=== PATIENT | female | born 1945 | race Caucasian/White ===

== ENCOUNTER 2024-01-21 21:09 | Inpatient (IN) ==
--- NOTE | 2024-01-21 21:29 | Emergency Department Note ---
Impression & Plan Small bowel obstruction, Abdominal pain ED Provider Note NAME: BISHNU GAXIOLA AGE: 78 SEX: F : 1945 ARRIVES VIA: Walk-In INFORMANT: Patient, ED PROVIDER(S): Denice Mccabe MD CHIEF COMPLAINT: Abdominal pain HPI: This is a an 78-year-old female with history of bowel resection, small bowel obstructions presenting for abdominal pain. Patient notes that she had 1 day history of bowel pain. Initially lower abdomen and then today became more upper abdomen. She an episode of vomiting which actually improved her symptoms but she still has achy pain in her abdomen. This does feel somewhat similar to previous SBO she has had. She was scared she may have mesenteric ischemia again so she also came in for this. No current fever, chills, nausea or vomiting. ROS: See above HPI for pertinent positives & negatives. A total of 10 systems reviewed and were otherwise negative. PAST MEDICAL HISTORY: See Below PAST SURGICAL HISTORY: See Below FAMILY HISTORY: See Below SOCIAL HISTORY: See Below HOME MEDICATIONS: See Below ALLERGIES: See Below VITALS: See Below PHYSICAL EXAMINATION: General: resting comfortably in no acute distress Head: Normocephalic and atraumatic Eyes: Normal inspection, extraocular muscles intact Ear, nose, throat: Normal external exam Neck: Normal range of motion Respiratory: lungs clear to auscultation bilaterally Cardiovascular: Regular rate/rhythm, no murmur GI: soft, nontender, no guarding or rebound Extremities: nontender, moves all extremities Neuro: The patient awake and alert, appropriately conversive, no focal deficits, symmetric faces Skin: Warm, dry, and intact MEDICAL DECISION MAKING: This is an 78-year-old female with history of bowel resection, small bowel obstruction, infected skin presenting for abdominal pain. Patient has reassuring vitals, nontender abdomen, no pain at proportion to exam. Does not appear septic on arrival. Will do CT imaging as well as blood work. And urinalysis. -Blood work reveals no leukocytosis, slight anemia. Otherwise electrodes within normal limits. Creatinine 1.24. No transaminitis. Urinalysis reveals no signs UTI -CT ab/pelvis does reveal signs of a small bowel obstruction versus enteritis. Discussed with Dr. Ledezma, general surgery, who states patient is amenable to be admitted here. -Discussed with Dr. Patel, for admission, hospitalist service. Differential diagnosis: SBO, diverticulitis, mesenteric ischemia, cholecystitis, bowel perforation, volvulus ER treatment provided: See below Independent History obtained from: [facility] interpreted by me: ECG: None Cardiac Monitoring: An order was placed for continuous cardiac monitoring. The monitor shows a rate of 74 with sinus rhythm. Laboratory studies: As stated above and show below. Imaging studies: See below. Past Med/Surg History Problem List (Updated 01/21/24 @ 23:43 by Denice Mccabe MD) Abdominal pain (Acute) Small bowel obstruction (Acute) Social History Smoking Status: Former smoker Preferred Language: Malagasy Feels Safe at Home: Yes Allergies Allergies Allergy/AdvReac Type Severity Reaction Status Date / Time cephalexin Allergy Rash Unverified 01/21/24 22:43 Home Meds Home Medications Medication Instructions Recorded Confirmed aspirin 81 mg tablet,delayed 162 mg PO QPM 01/21/24 01/21/24 release bimatoprost 0.01 % eye drops 1 drp ophthalmic (eye) QPM 01/21/24 01/21/24 (Lumigan) cholecalciferol (vitamin D3) 125 125 mcg PO QAM 01/21/24 01/21/24 mcg (5,000 unit) tablet (Vitamin D3) ezetimibe 10 mg tablet 10 mg PO QAM 01/21/24 01/21/24 famotidine 20 mg tablet 20 mg PO QPM 01/21/24 01/21/24 furosemide 40 mg tablet 40 mg PO QAM 01/21/24 01/21/24 lactobacillus comb no.10 20 20,000 mmu cells PO DAILY 01/21/24 01/21/24 billion cell capsule (Probiotic) levothyroxine 50 mcg tablet 50 mcg PO QAM 01/21/24 01/21/24 multivitamin 1 tab PO QAM 01/21/24 01/21/24 pantoprazole 40 mg tablet,delayed 40 mg PO BID 01/21/24 01/21/24 release spironolactone 25 mg tablet 25 mg PO QAM 01/21/24 01/21/24 valsartan 160 mg tablet 160 mg PO QAM 01/21/24 01/21/24 Results & Data (ED) Vital Signs Vital Signs - 24 hr 01/21/24 21:10 01/21/24 22:43 Temperature 36.7 C Temperature Source Temporal Artery Scan Pulse Rate 79 Pulse Rate [Apical] 74 Pulse Strength [Apical] Normal Respiratory Rate 16 18 Respiratory Effort / Characteristics Non-Labored Spontaneous Non-Labored Spontaneous Respiratory Depth Normal Normal Respiratory Pattern Regular Blood Pressure 170/89 H Blood Pressure [Right Arm] 128/70 Blood Pressure Mean 116 Blood Pressure Mean [Right Arm] 89 Pulse Oximetry 94 96 Oxygen Delivery Method Room Air Room Air Sepsis New/Unexplained Change in Mental Status No Sepsis Action Taken by Nursing No Action Required Laboratory Data 01/21/24 21:30 01/21/24 21:30 Lab Results 01/21/24 01/21/24 01/21/24 Range/Units 21:30 21:37 22:48 WBC 10.59 (4.8-10.8) K/ul RBC 4.23 (4.20-5.40) M/uL Hgb 11.3 L (12.0-16.0) g/dl POC Hgb 12.9 (12.0-16.0) g/dl Hct 35.3 L (37.0-47.0) % POC Hct 38 (37-47) % MCV 83.5 (80.0-100.0) fL MCH 26.7 (25.0-34.0) pg MCHC 32.0 (32.0-36.0) g/dL RDW Std Deviation 50.2 H (36.4-46.3) fL RDW Coeff of Kush 16.5 H (11.5-14.5) % Plt Count 292 (130-400) K/uL MPV 10.3 (9.4-12.4) fL Immature Gran % (Auto) 0.2 % Neut % (Auto) 82.1 % Lymph % (Auto) 7.6 % [place] % (Auto) 7.1 % Eos % (Auto) 2.8 % Baso % (Auto) 0.2 % Neut # (Auto) 8.70 H (1.40-6.50) K/uL Lymph # (Auto) 0.80 L (1.20-3.40) K/uL [place] # (Auto) 0.75 H (0.11-0.59) K/uL Eos # (Auto) 0.30 (0.00-0.50) K/uL Baso # (Auto) 0.02 (0.00-0.20) K/uL Immature Gran # (Auto) 0.02 (0.01-0.20) K/uL POC Sodium 140 (135-144) mmol/L Sodium 140 (136-145) mmol/L POC Potassium 4.0 (3.3-5.0) mmol/L Potassium 4.1 (3.5-5.1) mmol/L POC Chloride 103 (101-112) mmol/L Chloride 102 (98-107) mmol/L Carbon Dioxide 29 (21-32) mmol/L POC Total CO2 28 (24-31) mmol/L Anion Gap 9 (3-11) POC Anion Gap 14.0 L (16-25) mmol/L POC BUN 50 H (7-18) mg/dl BUN 42 H (6-23) mg/dl Creatinine 1.24 H (0.6-1.2) mg/dl POC Creatinine 1.3 (0.6-1.3) mg/dl Est Cr Clr Drug Dosing 34.8 ml/min eGFR 43.99 BUN/Creatinine Ratio 33.9 H (10-20) Glucose 107 H (70-99(Fasting)) mg/dl POC Glucose (other) 105 H (70-99) mg/dl Calcium 10.1 (8.6-10.3) mg/dl POC Ioniz Calcium [place] 1.18 (1.12-1.32) mmol/l Total Bilirubin 0.4 (0.2-1.0) mg/dl Direct Bilirubin TNP 0.1 AST 31 (13-39) U/L ALT 16 (7-52) U/L Alkaline Phosphatase 58 (34-104) U/L Total Protein 8.3 (6.0-8.3) gm/dl Albumin 4.9 (3.4-5.0) gm/dl Lipase 21 (11-82) U/L Urine Color Yellow Urine Appearance Clear (Clear) Urine pH 5.5 (4.5-7.5) Ur Specific [place] 1.016 (1.000-1.030) Urine Protein Negative (Negative) Urine Glucose (UA) Negative (Negative) Urine Ketones Trace H (Negative) Urine Blood Negative (Negative) Urine Nitrite Negative (Negative) Urine Bilirubin Negative (Negative) Urine Urobilinogen Negative (Negative) Ur Leukocyte Esterase 1+ H (Negative) Urine WBC (Auto) 0-5 (0-5) /hpf Urine RBC (Auto) 0-2 (0-2) /hpf U Hyaline Cast (Auto) 0-2 (0-2) /lpf U Epithel Cells (Auto) 0-2 (0-2) /hpf Urine Bacteria (Auto) None Seen (None Seen) Administered Medications Discontinued Medications Acetaminophen (Ofirmev) 1,000 mg in 100 mls @ 400 mls/hr IV NOW STA Stop: 01/21/24 22:56 Last Infusion: 01/21/24 23:09 Dose: Infused Documented By: Admin: 01/21/24 22:46 Dose: 400 mls/hr Documented By: COURTNEY Ioversol (Optiray 320 100ml) 93 ml IV ONCE ONE Stop: 01/21/24 21:48 Last Admin: 01/21/24 21:48 Dose: 93 ml Documented By: ARTURO Ondansetron HCl (Ondansetron Inj 2 Mg/Ml 2 Ml Vial) 4 mg IV NOW STA Stop: 01/21/24 22:43 Last Admin: 01/21/24 22:46 Dose: 4 mg Documented By: COURTNEY Imaging Data Radiologist's Impression: Abdomen/Pelvis CT 01/21/24 21:14 Exam(s): CT ABDOMEN + PELVIS With Contrast IV Amt: 93 ml optiray 320 EXAM: CT Abdomen and Pelvis With Intravenous Contrast CLINICAL HISTORY: RUQ abd pain. TECHNIQUE: Axial computed tomography images of the abdomen and pelvis with intravenous contrast. CTDI is 26.18 mGy and DLP is 1101.57 mGy-cm. Automated exposure control was utilized for the study. A dose lowering technique was utilized adhering to the principles of ALARA. CONTRAST: Patient received 93 ml optiray 320 of IV contrast COMPARISON: No relevant prior studies available. FINDINGS: Limitations: There is respiratory artifact, which degrades image quality on multiple image slices. Lung bases: Unremarkable. No mass. No consolidation. ABDOMEN: Liver: Unremarkable. No mass. Gallbladder and bile ducts: Unremarkable. No calcified stones. No ductal dilation. Pancreas: Unremarkable. No mass. No ductal dilation. Spleen: Unremarkable. No splenomegaly. Adrenals: Unremarkable. No mass. Kidneys and ureters: Kidneys demonstrate normal enhancement. Cortical cysts are noted involving the superior pole the left kidney measuring 14 mm. Evaluation is somewhat limited by artifact from extensive hardware and respiratory degradation. No hydronephrosis or obstructive nephrolithiasis. Extensive postoperative changes noted from T11-S1 levels with bilateral pedicle screws and paraspinal rods. The left S1 posterior pedicle screw does not articulate with the inferior margin of the paraspinal rods. Stomach and bowel: There are abnormal fluid and gas dilated small bowel loops throughout the central abdomen and pelvis, measuring up to 3. 6 cm in diameter. There appears to be questionable subtle transition point proximal to the postoperative suture line in the central pelvis. At least moderate fluid and gas distention of the stomach. PELVIS: Appendix: No findings to suggest acute appendicitis. Bladder: Unremarkable. No mass. Reproductive: Status post hysterectomy. ABDOMEN and PELVIS: Intraperitoneal space: Unremarkable. No free air. No significant fluid collection. Bones/joints: Multilevel degenerative changes with interbody cages at several levels of the lumbar spine. No acute osseous abnormality. Laminectomy defects from L3-L5 levels. Grade 1-2 anterolisthesis of L4 on L5. No dislocation. Soft tissues: Unremarkable. Vasculature: Unremarkable. No abdominal aortic aneurysm. Lymph nodes: Unremarkable. No enlarged lymph nodes. IMPRESSION: There are abnormal fluid and gas dilated small bowel loops throughout the central abdomen and pelvis, measuring up to 3.6 cm in diameter. There appears to be questionable subtle transition point proximal to the postoperative suture line in the central pelvis. While this may represent enteritis, findings are highly suspicious for a mid small bowel obstruction. No pneumatosis or pneumoperitoneum. Electronically signed by: Alden Hinkle MD 01/21/24 22:57 PM Discharge Plan Visit Data Chief Complaint: Abdominal Pain Stated Complaint: ABD PAIN, VOMITING ED Provider: Denice Mccabe Discharge Problem: Small bowel obstruction, Abdominal pain Forms Stand Alone Forms: My [facility] [place] [address] Prescriptions Prescriptions: No Action multivitamin Tablet 1 tab PO QAM furosemide 40 mg tablet 40 mg PO QAM aspirin [Aspir-81] 81 mg Tablet,Delayed Release (Dr/Ec) 162 mg PO QPM spironolactone 25 mg tablet 25 mg PO QAM famotidine 20 mg tablet 20 mg PO QPM levothyroxine 50 mcg tablet 50 mcg PO QAM pantoprazole 40 mg tablet,delayed release (DR/EC) 40 mg PO BID valsartan 160 mg tablet 160 mg PO QAM ezetimibe 10 mg tablet 10 mg PO QAM cholecalciferol (vitamin D3) [Vitamin D3] 125 mcg (5,000 unit) Tablet 125 mcg PO QAM Lumigan 0.01 % drops 1 drp ophthalmic (eye) QPM Rx Instructions: both eyes Probiotic 20 billion cell Capsule 20,000 mmu cells PO DAILY Rx Instructions: administer with a meal Referrals Referrals: PCP,NO [Physician] -
[2024-01-21] MEDS: OPTIRAY 320 100ml IV ONE (21:48)
[2024-01-21 21:49] LABS: iSTAT Creatinine 1.3 mg/dl (0.6-1.3); iSTAT Hemoglobin 12.9 g/dl (12.0-16.0); iSTAT Ionized Calcium 1.18 mmol/l (1.12-1.32)
[2024-01-21 21:54] LABS: Appearance Urine Clear (Clear); Bacteria Urine Automated None Seen (None Seen); Bilirubin Urine Negative (Negative); Blood Urine Negative (Negative); Cast Urine Automated 0-2 /lpf (0-2); Color Urine Yellow; Epithelial Cell Urine Auto 0-2 /hpf (0-2); Glucose Urine UA Negative (Negative); Ketones Urine Trace (Negative); Leukocyte Esterase Urine 1+ (Negative); Nitrite Urine Negative (Negative); Protein Urine Negative (Negative); RBC Urine Automated 0-2 /hpf (0-2); Specific Gravity Urine 1.016 (1.000-1.030); Urobilinogen Urine Negative (Negative); WBC Urine Automated 0-5 /hpf (0-5); pH Urine 5.5 (4.5-7.5)
[2024-01-21 22:04] LABS: Basophils # (auto) 0.02 K/uL (0.00-0.20); Basophils % (auto) 0.2 %; Eosinophils % (auto) 2.8 %; Hematocrit (blood only) 35.3 % (37.0-47.0); Hemoglobin 11.3 g/dl (12.0-16.0); Immature Granulocytes # (auto) 0.02 K/uL (0.01-0.20); Immature Granulocytes % (auto) 0.2 %; Lymphocytes % (auto) 7.6 %; Mean Corpuscular Hemoglobin 26.7 pg (25.0-34.0); Mean Corpuscular Volume 83.5 fL (80.0-100.0); Mean Platelet Volume 10.3 fL (9.4-12.4); Monocytes # (auto) 0.75 K/uL (0.11-0.59); Monocytes % (auto) 7.1 %; Neutrophils % (auto) 82.1 %; Platelet Count 292 K/uL (130-400); RDW Coefficient of Variation 16.5 % (11.5-14.5); RDW Standard Deviation 50.2 fL (36.4-46.3); Red Blood Count 4.23 M/uL (4.20-5.40); White Blood Count 10.59 K/ul (4.8-10.8)
[2024-01-21 22:08] LABS: Alanine Aminotransferase 16 U/L (7-52); Albumin Level 4.9 gm/dl (3.4-5.0); Alkaline Phosphatase 58 U/L (34-104); Anion Gap 9 (3-11); Aspartate Aminotransferase 31 U/L (13-39); BUN Creatinine Ratio 33.9 (10-20); Bilirubin,Total 0.4 mg/dl (0.2-1.0); Blood Urea Nitrogen 42 mg/dl (6-23); Calcium 10.1 mg/dl (8.6-10.3); Carbon Dioxide 29 mmol/L (21-32); Chloride 102 mmol/L (98-107); Creatinine Clr Calc Pharmacy 34.8 ml/min; Glucose 107 mg/dl (70-99(Fasting)); Lipase 21 U/L (11-82); Potassium 4.1 mmol/L (3.5-5.1); Sodium 140 mmol/L (136-145); Total Protein 8.3 gm/dl (6.0-8.3)
[2024-01-21] MEDS: ONDANSETRON INJ 2 MG/ML 2 ML VIAL IV STA (22:46)
[2024-01-21] MEDS: ACETAMINOPHEN 1,000 MG/100 ML VIAL IV STA (22:46)
--- NOTE | 2024-01-21 22:58 | CT Scan Report ---
Exam(s): CT ABDOMEN + PELVIS With Contrast IV Amt: 93 ml optiray 320 EXAM: CT Abdomen and Pelvis With Intravenous Contrast CLINICAL HISTORY: RUQ abd pain. TECHNIQUE: Axial computed tomography images of the abdomen and pelvis with intravenous contrast. CTDI is 26.18 mGy and DLP is 1101.57 mGy-cm. Automated exposure control was utilized for the study. A dose lowering technique was utilized adhering to the principles of ALARA. CONTRAST: Patient received 93 ml optiray 320 of IV contrast COMPARISON: No relevant prior studies available. FINDINGS: Limitations: There is respiratory artifact, which degrades image quality on multiple image slices. Lung bases: Unremarkable. No mass. No consolidation. ABDOMEN: Liver: Unremarkable. No mass. Gallbladder and bile ducts: Unremarkable. No calcified stones. No ductal dilation. Pancreas: Unremarkable. No mass. No ductal dilation. Spleen: Unremarkable. No splenomegaly. Adrenals: Unremarkable. No mass. Kidneys and ureters: Kidneys demonstrate normal enhancement. Cortical cysts are noted involving the superior pole the left kidney measuring 14 mm. Evaluation is somewhat limited by artifact from extensive hardware and respiratory degradation. No hydronephrosis or obstructive nephrolithiasis. Extensive postoperative changes noted from T11-S1 levels with bilateral pedicle screws and paraspinal rods. The left S1 posterior pedicle screw does not articulate with the inferior margin of the paraspinal rods. Stomach and bowel: There are abnormal fluid and gas dilated small bowel loops throughout the central abdomen and pelvis, measuring up to 3. 6 cm in diameter. There appears to be questionable subtle transition point proximal to the postoperative suture line in the central pelvis. At least moderate fluid and gas distention of the stomach. PELVIS: Appendix: No findings to suggest acute appendicitis. Bladder: Unremarkable. No mass. Reproductive: Status post hysterectomy. ABDOMEN and PELVIS: Intraperitoneal space: Unremarkable. No free air. No significant fluid collection. Bones/joints: Multilevel degenerative changes with interbody cages at several levels of the lumbar spine. No acute osseous abnormality. Laminectomy defects from L3-L5 levels. Grade 1-2 anterolisthesis of L4 on L5. No dislocation. Soft tissues: Unremarkable. Vasculature: Unremarkable. No abdominal aortic aneurysm. Lymph nodes: Unremarkable. No enlarged lymph nodes. IMPRESSION: There are abnormal fluid and gas dilated small bowel loops throughout the central abdomen and pelvis, measuring up to 3.6 cm in diameter. There appears to be questionable subtle transition point proximal to the postoperative suture line in the central pelvis. While this may represent enteritis, findings are highly suspicious for a mid small bowel obstruction. No pneumatosis or pneumoperitoneum. Electronically signed by: Alden Hinkle MD 01/21/24 22:57 PM
--- NOTE | 2024-01-22 02:31 | History & Physical Report ---
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 Patient says since she is having abdominal pain initially in the lower abdomen. Wednesday she noticed the pain is coming into the upper abdomen and she was also very nauseous and vomited when she decided come to the ER. After vomiting her abdominal pain is slightly better. She moved her bowels Wednesday.. Patient is afebrile. Currently no headache. 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 No runny nose or sore throat or cough. No chest pain or shortness of breath. Resting comfortably. Hemodynamically stable. 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 Patient says she also might have sleep apnea because she gets headache when she wakes up and also during the hospitalization her oxygen sats were going down while sleeping and she is scheduled for sleep apnea test on February 23. small bowel obstruction History of recurrent bowel obstructions History of bowel resection for ischemic bowel N.p.o. IV fluids IV antiemetics as needed IV Tylenol and and Dilaudid as needed KUB in a.m. Surgery consult in a.m. for further recommendations JAMIE Creatinine 1.2 We do not have baseline labs If worsening will hold her diuretics and valsartan Follow labs History of hypertension On valsartan and diuretics History of hyperlipidemia Continue Zetia Glaucoma Continue eyedrops GERD On famotidine and Protonix Hypothyroidism On Synthyroid DVT prophylaxis Will place on [facility] Medical floor Full code. 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 Patient says since she is having abdominal pain initially in the lower abdomen. Flaco she noticed the pain is coming into the upper abdomen and she was also very nauseous and vomited when she decided come to the ER. After vomiting her abdominal pain is slightly better. She moved her bowels Wednesday.. Patient is afebrile. Currently no headache. 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 No runny nose or sore throat or cough. No chest pain or shortness of breath. Resting comfortably. Hemodynamically stable. 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 Patient says she also might have sleep apnea because she gets headache when she wakes up and also during the hospitalization her oxygen sats were going down while sleeping and she is scheduled for sleep apnea test on February 23. Past medical history. As mentioned above Past surgical history. Total hysterectomy. Appendectomy. Back surgeries. Right wrist surgery. Right total knee replacement. Right foot surgery. Bilateral cataracts. Stent in the eyes for glaucoma. Dental implant. Social history. Smoked from age [age] and then quit. Alcohol rarely. Family history. 1 brother from prostate cancer. Another brother had prostate cancer and dementia. Family history significant for hypertension. Mother had A-fib and sick sinus syndrome. Allergies Allergy/AdvReac Type Severity Reaction Status Date / Time cephalexin Allergy Rash Unverified 01/21/24 22:43 Home Medications Medication Instructions Recorded Confirmed Type aspirin 81 mg tablet,delayed 162 mg PO QPM 01/21/24 01/21/24 History release bimatoprost 0.01 % eye drops 1 drp ophthalmic (eye) QPM 01/21/24 01/21/24 History (Lumigan) cholecalciferol (vitamin D3) 125 125 mcg PO QAM 01/21/24 01/21/24 History mcg (5,000 unit) tablet (Vitamin D3) ezetimibe 10 mg tablet 10 mg PO QAM 01/21/24 01/21/24 History famotidine 20 mg tablet 20 mg PO QPM 01/21/24 01/21/24 History furosemide 40 mg tablet 40 mg PO QAM 01/21/24 01/21/24 History lactobacillus comb no.10 20 20,000 mmu cells PO DAILY 01/21/24 01/21/24 History billion cell capsule (Probiotic) levothyroxine 50 mcg tablet 50 mcg PO QAM 01/21/24 01/21/24 History multivitamin 1 tab PO QAM 01/21/24 01/21/24 History pantoprazole 40 mg tablet,delayed 40 mg PO BID 01/21/24 01/21/24 History release spironolactone 25 mg tablet 25 mg PO QAM 01/21/24 01/21/24 History valsartan 160 mg tablet 160 mg PO QAM 01/21/24 01/21/24 History Past Med/Surg History Problem List (Updated 01/21/24 @ 23:43 by Denice Mccabe MD) Abdominal pain (Acute) Small bowel obstruction (Acute) Social History Smoking Status: Former smoker Hx Alcohol Use: Yes Alcohol type: wine Hx Substance Use: No Preferred Language: Bengali Communication Ability: Effective 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 ENT- oropharynx dry Neck- supple, no JVD. Lungs- clear to auscultation no wheezing or crackles. Heart- regular rate and rhythm; no murmur, no gallop. Abdomen- sluggish bowel sounds, soft, No tenderness , no distension Extremities- no pretibial edema, no erythema seen Neuro- alert, oriented PERRL, no facial palsy; no dysarthria; moves extremities Results & Data Results & Data Vital Signs (Past 12 Hours) Vital Signs Temp Pulse Pulse Resp BP BP Pulse Ox 01/22/24 01:09 72 15 103/62 92 01/21/24 23:43 74 01/21/24 22:43 74 18 128/70 96 01/21/24 21:10 36.7 C 79 16 170/89 H 94 O2 Del Method 01/22/24 01:09 Room Air 01/21/24 23:43 01/21/24 22:43 Room Air 01/21/24 21:10 Room Air Diagnostic Findings Laboratory Results WBC 10.59 K/ul (4.8-10.8) 01/21/24 21:30 RBC 4.23 M/uL (4.20-5.40) 01/21/24 21: Hgb 11.3 g/dl (12.0-16.0) L 01/21/24 21: POC Hgb 12.9 g/dl (12.0-16.0) 01/21/24 21: Hct 35.3 % (37.0-47.0) L 01/21/24 21: POC Hct 38 % (37-47) 01/21/24 21: MCV 83.5 fL (80.0-100.0) 01/21/24 21: MCH 26.7 pg (25.0-34.0) 01/21/24 21: MCHC 32.0 g/dL (32.0-36.0) 01/21/24: RDW Std Deviation 50.2 fL (36.4-46.3) H 01/21/24: RDW Coeff of Kush 16.5 % (11.5-14.5) H 01/21/24 21: Plt Count 292 K/uL (130-400) 01/21/24 21: MPV 10.3 fL (9.4-12.4) 01/21/24 21: Immature Gran % (Auto) 0.2 % 01/21/24 21: Neut % (Auto) 82.1 % 01/21/24 21: Lymph % (Auto) 7.6 % 01/21/24: Louisa % (Auto) 7.1 % 01/21/24 21: Eos % (Auto) 2.8 % 01/21/24 21:30 Baso % (Auto) 0.2 % 01/21/24: Neut # (Auto) 8.70 K/uL (1.40-6.50) H 01/21/24 21: Lymph # (Auto) 0.80 K/uL (1.20-3.40) L 01/21/24 21:30 Louisa # (Auto) 0.75 K/uL (0.11-0.59) H 01/21/24 21:30 Eos # (Auto) 0.30 K/uL (0.00-0.50) 01/21/24 21:30 Baso # (Auto) 0.02 K/uL (0.00-0.20) 01/21/24 21:30 Immature Gran # (Auto) 0.02 K/uL (0.01-0.20) 01/21/24 21:30 POC Sodium 140 mmol/L (135-144) 01/21/24 21:37 Sodium 140 mmol/L (136-145) 01/21/24 21:30 POC Potassium 4.0 mmol/L (3.3-5.0) 01/21/24 21:37 Potassium 4.1 mmol/L (3.5-5.1) 01/21/24 21:30 POC Chloride 103 mmol/L (101-112) 01/21/24 21:37 Chloride 102 mmol/L (98-107) 01/21/24 21:30 Carbon Dioxide 29 mmol/L (21-32) 01/21/24 21:30 POC Total CO2 28 mmol/L (24-31) 01/21/24 21:37 Anion Gap 9 (3-11) 01/21/24 21:30 POC Anion Gap 14.0 mmol/L (16-25) L 01/21/24 21:37 POC BUN 50 mg/dl (7-18) H 01/21/24 21:37 BUN 42 mg/dl (6-23) H 01/21/24 21:30 Creatinine 1.24 mg/dl (0.6-1.2) H 01/21/24 21:30 POC Creatinine 1.3 mg/dl (0.6-1.3) 01/21/24 21:37 Est Cr Clr Drug Dosing 34.8 ml/min 01/21/24 21:30 eGFR 43.99 01/21/24 21:30 BUN/Creatinine Ratio 33.9 (10-20) H 01/21/24 21:30 Glucose 107 mg/dl (70-99(Fasting)) H 01/21/24 21:30 POC Glucose (other) 105 mg/dl (70-99) H 01/21/24 21:37 Calcium 10.1 mg/dl (8.6-10.3) 01/21/24 21:30 POC Ioniz Calcium [place] 1.18 mmol/l (1.12-1.32) 01/21/24 21:37 Total Bilirubin 0.4 mg/dl (0.2-1.0) 01/21/24 21:30 Direct Bilirubin 0.1 mg/dl (0-0.2) 01/21/24 22:48 AST 31 U/L (13-39) 01/21/24 21:30 ALT 16 U/L (7-52) 01/21/24 21:30 Alkaline Phosphatase 58 U/L (34-104) 01/21/24 21:30 Total Protein 8.3 gm/dl (6.0-8.3) 01/21/24 21:30 Albumin 4.9 gm/dl (3.4-5.0) 01/21/24 21:30 Lipase 21 U/L (11-82) 01/21/24 21:30 Urine Color Yellow 01/21/24 21:30 Urine Appearance Clear (Clear) 01/21/24 21:30 Urine pH 5.5 (4.5-7.5) 01/21/24 21:30 Ur Specific [place] 1.016 (1.000-1.030) 01/21/24 21:30 Urine Protein Negative (Negative) 01/21/24 21:30 Urine Glucose (UA) Negative (Negative) 01/21/24 21:30 Urine Ketones Trace (Negative) H 01/21/24 21:30 Urine Blood Negative (Negative) 01/21/24 21:30 Urine Nitrite Negative (Negative) 01/21/24 21:30 Urine Bilirubin Negative (Negative) 01/21/24 21:30 Urine Urobilinogen Negative (Negative) 01/21/24 21:30 Ur Leukocyte Esterase 1+ (Negative) H 01/21/24 21:30 Urine WBC (Auto) 0-5 /hpf (0-5) 01/21/24 21:30 Urine RBC (Auto) 0-2 /hpf (0-2) 01/21/24 21:30 U Hyaline Cast (Auto) 0-2 /lpf (0-2) 01/21/24 21:30 U Epithel Cells (Auto) 0-2 /hpf (0-2) 01/21/24 21:30 Urine Bacteria (Auto) None Seen (None Seen) 01/21/24 21:30 Impressions Abdomen/Pelvis CT 01/21/24 21:14 Exam(s): CT ABDOMEN + PELVIS With Contrast IV Amt: 93 ml optiray 320 EXAM: CT Abdomen and Pelvis With Intravenous Contrast CLINICAL HISTORY: RUQ abd pain. TECHNIQUE: Axial computed tomography images of the abdomen and pelvis with intravenous contrast. CTDI is 26.18 mGy and DLP is 1101.57 mGy-cm. Automated exposure control was utilized for the study. A dose lowering technique was utilized adhering to the principles of ALARA. CONTRAST: Patient received 93 ml optiray 320 of IV contrast COMPARISON: No relevant prior studies available. FINDINGS: Limitations: There is respiratory artifact, which degrades image quality on multiple image slices. Lung bases: Unremarkable. No mass. No consolidation. ABDOMEN: Liver: Unremarkable. No mass. Gallbladder and bile ducts: Unremarkable. No calcified stones. No ductal dilation. Pancreas: Unremarkable. No mass. No ductal dilation. Spleen: Unremarkable. No splenomegaly. Adrenals: Unremarkable. No mass. Kidneys and ureters: Kidneys demonstrate normal enhancement. Cortical cysts are noted involving the superior pole the left kidney measuring 14 mm. Evaluation is somewhat limited by artifact from extensive hardware and respiratory degradation. No hydronephrosis or obstructive nephrolithiasis. Extensive postoperative changes noted from T11-S1 levels with bilateral pedicle screws and paraspinal rods. The left S1 posterior pedicle screw does not articulate with the inferior margin of the paraspinal rods. Stomach and bowel: There are abnormal fluid and gas dilated small bowel loops throughout the central abdomen and pelvis, measuring up to 3. 6 cm in diameter. There appears to be questionable subtle transition point proximal to the postoperative suture line in the central pelvis. At least moderate fluid and gas distention of the stomach. PELVIS: Appendix: No findings to suggest acute appendicitis. Bladder: Unremarkable. No mass. Reproductive: Status post hysterectomy. ABDOMEN and PELVIS: Intraperitoneal space: Unremarkable. No free air. No significant fluid collection. Bones/joints: Multilevel degenerative changes with interbody cages at several levels of the lumbar spine. No acute osseous abnormality. Laminectomy defects from L3-L5 levels. Grade 1-2 anterolisthesis of L4 on L5. No dislocation. Soft tissues: Unremarkable. Vasculature: Unremarkable. No abdominal aortic aneurysm. Lymph nodes: Unremarkable. No enlarged lymph nodes. IMPRESSION: There are abnormal fluid and gas dilated small bowel loops throughout the central abdomen and pelvis, measuring up to 3.6 cm in diameter. There appears to be questionable subtle transition point proximal to the postoperative suture line in the central pelvis. While this may represent enteritis, findings are highly suspicious for a mid small bowel obstruction. No pneumatosis or pneumoperitoneum. Electronically signed by: Alden Hinkle MD 01/21/24 22:57 PM ECG Additional Comments: ECG. Normal sinus rhythm rate 61. Nonspecific T wave abnormality. Code Status & VTE Plan VTE Prophylaxis Plan VTE Prophylaxis will be ordered: Yes
[2024-01-22] MEDS ORDERED: HYDROmorphone INJ 0.5 MG/0.5 ML SYR IV PRN (03:53)
[2024-01-22] MEDS ORDERED: ONDANSETRON INJ 2 MG/ML 2 ML VIAL IV PRN (03:53)
[2024-01-22] MEDS ORDERED: ACETAMINOPHEN 1,000 MG/100 ML VIAL IV PRN (03:53)
[2024-01-22] MEDS: D5W AND NSS 1,000 ML IV SCH (04:23)
[2024-01-22] MEDS: LEVOTHYROXINE SODIUM 50 MCG TABLET PO SCH (06:23)
[2024-01-22 07:21] LABS: Basophils # (auto) 0.02 K/uL (0.00-0.20); Basophils % (auto) 0.4 %; Eosinophils # (auto) 0.35 K/uL (0.00-0.50); Eosinophils % (auto) 6.8 %; Hematocrit (blood only) 27.5 % (37.0-47.0); Hemoglobin 8.5 g/dl (12.0-16.0); Immature Granulocytes # (auto) 0.01 K/uL (0.01-0.20); Immature Granulocytes % (auto) 0.2 %; Lymphocytes # (auto) 0.68 K/uL (1.20-3.40); Lymphocytes % (auto) 13.3 %; Mean Corpuscular Hemoglobin 26.3 pg (25.0-34.0); Mean Corpuscular Hgb Conc 30.9 g/dL (32.0-36.0); Mean Corpuscular Volume 85.1 fL (80.0-100.0); Mean Platelet Volume 10.1 fL (9.4-12.4); Monocytes # (auto) 0.81 K/uL (0.11-0.59); Monocytes % (auto) 15.8 %; Neutrophils # (auto) 3.26 K/uL (1.40-6.50); Neutrophils % (auto) 63.5 %; Platelet Count 210 K/uL (130-400); RDW Coefficient of Variation 16.5 % (11.5-14.5); RDW Standard Deviation 50.7 fL (36.4-46.3); Red Blood Count 3.23 M/uL (4.20-5.40); White Blood Count 5.13 K/ul (4.8-10.8)
[2024-01-22 07:37] LABS: BUN Creatinine Ratio 39.8 (10-20); Calcium 8.3 mg/dl (8.6-10.3); Creatinine Clr Calc Pharmacy 43.8 ml/min; Magnesium 2.1 mg/dl (1.7-2.4)
[2024-01-22] MEDS: VALSARTAN 80 MG TAB PO SCH (09:06)
[2024-01-22] MEDS: MULTIVITAMIN TAB PO SCH (09:06)
[2024-01-22] MEDS: EZETIMIBE 10 MG TAB PO SCH (09:07)
[2024-01-22] MEDS: ADVANCED PROBIOTIC 625 MG CAPSULE PO SCH (09:07)
[2024-01-22] MEDS: CHOLECALCIFEROL 125 MCG (5,000 UNITS) TAB PO SCH (09:07)
[2024-01-22] MEDS: ENOXAPARIN INJ 40 MG/0.4 ML SYR SQ SCH (09:08)
[2024-01-22] MEDS: PANTOprazole 40 MG TAB PO SCH (09:08)
[2024-01-22] MEDS: FUROSEMIDE 40 MG TAB PO SCH (09:08)
[2024-01-22] MEDS: SPIRONOLACTONE 25 MG TAB PO SCH (09:08)
--- OUTSIDE RECORDS SUMMARY | 2024-01-22 09:50 | External Medical Summary | Continuity of Care Document ---
Author Name Unknown Organization [facility] [address] [place] [id number] Care Team Providers Care Decal Transferrer Name Role Phone Maximiliano Sanchez Primary Care Physician [phone] Encounter [facility] [id number] Date(s): 12/06/23 - 12/06/23 [facility] [address] [facility] [address] [facility], [address] [place] [address] [phone] Encounter Diagnosis Body mass index [BMI] 31.0-31.9, adult(Discharge Diagnosis) - 12/06/23 Snoring(Discharge Diagnosis) - 12/06/23 Weight disorder(Discharge Diagnosis) - 12/06/23 Discharge Disposition: Home or Self Care Attending Physician: GENEVA Yuan Beverly L Referring Physician: MD Sanchez Mark W Allergies, Adverse Reactions, Alerts Substance Criticality Severity Reaction Reaction Severity Status cephalosporins Unable to assess criticality Moderate Rash Active Keflex Hives Active Assessment and Plan Extracted from: Title:Office Visit Note Author:GENEVA Yuan, Samanta Rashid Date:12/06/23 1.Snoring Patientis a 78year oldfemalewith HTN, asthma, GERD and obesity. There is a high clinical concern for obstructive sleep apnea syndrome given symptoms of snoring, apnea, EDS and hypoxemia. STOP-BANG is 6 , Bruni 13. Ahome sleep studyhas been ordered for the diagnosis of obstructive sleep apnea. Patient will be notified of results of sleep study via phone call. We plan to start autoCPAP therapy pending results of study. Follow-up in clinic after sleep study. Patient was counseled to not drive, operate heavy machinery or do other safety-sensitive tasks when sleepy or otherwise impaired. Potential countermeasures were discussed, including taking a nap until feeling refreshed or consuming caffeine. Potential legal implications of driving while drowsy may include many years in detention.Patientvoiced understanding and agreement. The pathophysiology of obstructive sleep apneas was discussed with the patient in detail. We also discussed the half-way consequences of untreated obstructive sleep apnea, including higher risk of hypertension, cardiovascular disease, cardiac arrhythmias and stroke, as well as poor control of diabetes.I counseled patient about the short term effects of KALEY, including difficulty in concentration, mood changes, and excessive daytime sleepiness. Patient was educated to avoid alcohol and sedating medications (such as opioids and benzodiazepine) as they may worsen untreated KALEY. We also discussed different treatment options for KALEY, including positive airway pressure (PAP), oral appliances, weight loss, positional therapy and surgical options. 2.Weight disorder Education provided about importance of weight loss efforts; losing 10% of body weight improves sleep apnea by 25-40%. This may allow decrease CPAP pressure or stopping CPAP depending on weight loss. Recommended following Mediterranean Diet and exercising for a goal of 30 minutes 4-5 days per week. I spent 41minutes with the patient in the office room,providing direct patient care I spent 52minutes addressing patient's care today. This included a chart review, reviewing results, discussion regarding the condition and follow up. Medications Albuterol (Eqv-ProAir HFA) 90 mcg/inh inhalation aerosol Start: 12/06/23 10:01:00 AM EDT Start Date: 12/06/23 Status: Ordered bimatoprost 0.01% ophthalmic solution Start: 05/11/23 7:27:00 AM EST Start Date: 05/11/23 Status: Ordered ezetimibe 10 mg oral tablet Start: 05/11/23 7:25:00 AM EST, 1 tab, PO, Daily Start Date: 05/11/23 Status: Ordered famotidine 20 mg oral tablet Start: 12/06/23 10:01:00 AM EDT, 1 tab, PO, Daily Start Date: 12/06/23 Status: Ordered furosemide 40 mg oral tablet Start: 05/11/23 7:26:00 AM EST, 1 tab, PO, Daily Start Date: 05/11/23 Status: Ordered levothyroxine 50 mcg (0.05 mg) oral tablet Start: 05/11/23 7:26:00 AM EST, 1 tab, PO, Daily Start Date: 05/11/23 Status: Ordered pantoprazole 40 mg oral delayed release tablet Start: 05/11/23 7:27:00 AM EST, 1 tab, PO, Daily Start Date: 05/11/23 Status: Ordered spironolactone 25 mg oral tablet Start: 05/11/23 7:27:00 AM EST, 1 tab, PO, Daily Start Date: 05/11/23 Status: Ordered Tylenol 500 mg oral tablet Start: 05/17/23 11:27:00 AM EST, 2 tab, PO, q8h Start Date: 05/17/23 Status: Ordered valsartan 160 mg oral tablet Start: 05/11/23 7:27:00 AM EST, 1 tab, PO, Daily Start Date: 05/11/23 Status: Ordered Mental Status 12/06/23 Barriers to Learning one year None evide nt Mandatory Health Literacy Documentation Yes Health Literacy Communication Barriers N ever Primary Language Kazakh Problem List No Chronic Problems Diagnosis Diagnosis Type Effective Dates Health Status Cl inical Service Informant Weight disorder Discharge Diagnosis 12/06/23 Body mass index [BMI] 31.0-31.9, adult Discharge Diagnosis 12/06/23 Non-Specified Snoring Discharge Diagnosis 12/06/23 Vital Signs Most recent to oldest [Reference Range]: 1 Height 159 cm (12/06/23 9:56 AM) Patient Weight 80.5 kg (12/06/23 9:56 AM) Body Mass Index 31.84 kg/m2 (12/06/23 9:56 AM) Temperature [36.5-37.9 DegC] 37.0 DegC (12/06/23 9:56 AM) Heart Rate 71 bpm (12/06/23 9:56 AM) Respiratory Rate 16 br/min (12/06/23 9:56 AM) Blood Pressure 169/77mmHg (12/06/23 9:56 AM) BP Location # 1 Right Arm (12/06/23 9:56 AM) Social History Social History Type Response Smoking Status Never smoked cigaret shruthi Sex Female Sex Representation Female (finding) Outpatient Note * GENEVA Yuan Beverly L: PERFORM, MODIFY Event Display: .Outpt Note Authored Date: [id number] Chief Complaint Consult-Snoring, witnessed apnea and low O2 when in hospital History of Present Illness Ms. Haily Connell is a pleasant 78 year oldfemalewho presentstoday for consult ofsnoring.Shehas a past medical history significant forchronic rhinitis,chronic kidney disease stage II, hypothyroidism, purehypercholesterolemia,thoracic and lumbosacral neuritis,hypertensive renal disease,hypothyroidism, osteoarthritis, allergic asthmawithout statusasthmaticus,GERD, rheumatoid arthritis.Haily was recently hospitalized for small bowel obstructionin while staying in the ICU, nursing staffwould come in often during the night and tell her that her O2 sats were in the 70s. She was given supplemental oxygen. She has been toldin the pastbyherhusband and daughter that she does snore. She will have thesensationof having apneain her sleep and wakes up tired. She does report morning headaches. Current sleep pattern begins when she retires to bed at 11 PM1 AMand will rise between 58 AM. She can only fall asleep with background noise such as TV, fans and music. Sleep onset variesfrom 15 minutes up to 2 hours. She will occasionally wake up frequentlyduring the night to either drink water, go to the bathroomor listen to TV. She can readily doze off when inactive, reading, watching TVor at a movie theater. Naps are rare. She does reportsleepingin a recliner since spinal fusionin 2011. She denies symptoms of sleep paralysis, cataplexy, hypnagogic hallucinationsand parasomnia. She does describe aching, tension-like sensation to her legs in the eveningand movement decreases symptoms. She has been told that she grinds her teeth,according to her dentist. Personal/social history: Patient is a retired psychiatrist. She is and has 3 children.She drinks4 caffeinated coffeesdaily. She was a1- 1/2 pack a day smokerfor 18 yearsandquit in 1977. Alcohol use is rare. Sleep Disordered Breathing: Snoring:Y Witnessed apneas:Y Shortness of breath or choking/gasping for air:Y Morning dry mouth:Y Morning headaches:Y Non-refreshing sleep:Y Nasal congestion:Y Nocturia: Y Daytime Symptoms: Excessive daytime sleepiness:Y Driving while drowsy:N History of motor vehicle accidents or near misses:N Cognitive problems:N Mood problems:N Problems at work, school or at home:N Bruni:13 FOSQ:26 History of tonsillectomy: Y Review of Systems Constitutional: negative except as documented in HPI Ears, nose, mouth and throat: negative except as documented in HPI Neurological: negative except as documented in HPI Eyes: negative except as documented in HPI Cardiovascular: negative except as documented in HPI Respiratory: negative except as documented in HPI Musculoskeletal: negative except as documented in HPI Psychiatric: negative except as documented in HPI Skin: negative except as documented in HPI Physical Exam Vitals & Measurements T:37.0C HR:71(Monitored) RR:16 BP:169/77 SpO2:98% HT:159cm WT:80.500kg(Dosing) WT:80.5kg BMI:31.84 General appearance: Body habitus isobese. In no apparent distress Head: normocephalic, atraumatic Eyes: Conjunctiva clear ENT: Neck circumference:15 1/4" Lungs: respiratory effort is normal, lungs are clear to auscultation, no crackles, rhonchi or wheezing Heart: rate and rhythm is regular,no murmurs, gallops, or rubs. Extremities: +2edema in the lower extremities,no cyanosis Skin:No rashes or lesions in visible regions. Psychiatric: Judgment and insight appear intact, mood and affect appear normal Neurological Exam: Mental status exam- Patient is alert and oriented, speech is fluent Gait- Gait is normal, use of assistive devices:cane Assessment/Plan 1.Snoring Patientis a 78year oldfemalewith HTN, asthma, GERD and obesity. There is a high clinical concern for obstructive sleep apnea syndrome given symptoms of snoring, apnea, EDS and hypoxemia. STOP-BANG is 6 , Bruni 13. Ahome sleep studyhas been ordered for the diagnosis of obstructive sleep apnea. Patient will be notified of results of sleep study via phone call. We plan to start autoCPAP therapy pending results of study. Follow-up in clinic after sleep study. Patient was counseled to not drive, operate heavy machinery or do other safety- sensitive tasks whensleepy or otherwise impaired. Potential countermeasures were discussed, including taking a nap until feeling refreshed or consuming caffeine. Potential legal implications of driving while drowsy may include many years in detention.Patientvoiced understanding and agreement. The pathophysiology of obstructive sleep apneas was discussed with the patient in detail. We alsodiscussed the superintendent terminal consequences of untreated obstructive sleep apnea, including higher risk ofhypertension, cardiovascular disease, cardiac arrhythmias and stroke, as well as poor control of kalli betes.I counseled patient about the short term effects of KALEY, including difficulty in concentration, mood changes, and excessive daytime sleepiness. Patient was educated to avoid alcohol and sedating medications (such as opioids and benzodiazepine)as they may worsen untreated KALEY. We also discussed different treatment options for KALEY, including positive airway pressure (PAP), oral appliances, weight loss, positional therapy and surgical options. 2.Weight disorder Education provided about importance of weight loss efforts; losing 10% of body weight improves sleep apnea by 25-40%. This may allow decrease CPAP pressure or stopping CPAP depending on weight loss. Recommended following Mediterranean Diet and exercising for a goal of 30 minutes 4-5 days per week. I spent 41minutes with the patient in the office room,providing direct patient care I spent 52minutes addressing patient's care today. This included a chart review, reviewing results, discussion regarding the condition and follow up. Problem List/Past Medical History Ongoing No chronic problems Medications acetaminophen(Tylenol 500 mg oral tablet), 1000 mg= 2 tab, PO, q8h albuterol(Albuterol (Eqv-ProAir HFA) 90 mcg/inh inhalation aerosol) bimatoprost ophthalmic(bimatoprost 0.01% ophthalmic solution) ezetimibe(ezetimibe 10 mg oral tablet), 10 mg= 1 tab, PO, Daily famotidine(famotidine 20 mg oral tablet), 20 mg= 1 tab, PO, Daily furosemide(furosemide 40 mg oral tablet), 40 mg= 1 tab, PO, Daily levothyroxine(levothyroxine 50 mcg (0.05 mg) oral tablet), 50 mcg= 1 tab, PO, Daily pantoprazole(pantoprazole 40 mg oral delayed release tablet), 40 mg= 1 tab, PO, Daily spironolactone(spironolactone 25 mg oral tablet), 25 mg= 1 tab, PO, Daily valsartan(valsartan 160 mg oral tablet), 160 mg= 1 tab, PO, Daily Allergies cephalosporins (Moderate)Alexandre Tesfaye Social History Smoking Status Never smoked cigarettes Recommendations Health Maintenance Pending(in the next year) OverDue Lipid Screening due10/09/01and every 1826day Adult Influenza Vaccine due10/10/23and every 1year Due Adult COVID-19 Vaccination due12/06/23Unknown Frequency Adult Tdap/Td Vaccine due12/06/23Unknown Frequency Medicare Annual Wellness Visit due12/06/23and every 1year Osteoporosis Screening due12/06/23One-time only Pneumococcal Vaccine Older Adults due12/06/23One-time only Shingles Vaccine due12/06/23One-time only Due In Future Adult Social Determinants of Health Screening not due until05/17/24and every 366day Satisfied(in the past 1 year) Satisfied Body Mass Index on12/06/23.Satisfied by ANGELA Trejo Latanya Electronic Signature on File Electronically Reviewed/Signed by: GENEVA Greenberg Author Signature Dt/Tm:12/06/2023 07:17 PM [facility] [address] [place] [address], [address] [place] [address] [place] Patient Care team information Care Team Personnel Name: Tom Richter Christine A Position: Pharmacist Member Role: Pharmacy - Lifetime Name: MD Laura, Maximiliano Tamayo Position: Referring DIRECT Member Role: Primary Care Provider Address: [facility] [address], [address] [place] [address] [place]
--- NOTE | 2024-01-22 10:05 | XRay Report ---
KUB HISTORY: Follow-up study patient with recent small bowel obstruction sbo COMPARISON: CT 01/21/2024 FINDINGS: Moderate colonic fecal retention. Persistent small bowel obstruction with dilated air-fille d loops measuring up to 4 cm, similar to prior. No renal calculi. No ureteral calculi. No pneumoperi toneum or pneumatosis. Contrast noted within the urinary bladder. Degenerative and postoperative mao ges of the lumbar spine. No fracture. IMPRESSION: Persistent small bowel obstruction. Continued follow-up is needed. ACT 112: Negative or not required by law. The above report was generated using voice recognition software. It may contain grammatical, syntax o r spelling errors. Electronically signed by: Remi Blevins M.D. 01/22/2024 10:03 AM
--- NOTE | 2024-01-22 11:59 | Surgery Consultation ---
Date of Consultation January 22, 2024 Assessment & Plan (1) Small bowel obstruction: 78-year-old woman with small bowel obstruction. She has had multiple operations in the past. There are no peritoneal signs. White blood cell count is normal. She is afebrile. She is beginning to pass flatus. I would rec ommend continued conservative measures for now. If she continues to pass flatus into this afternoon, we may advance her diet to clear liquids today. Encourage ambulation. We will continue to follow while she is here. History of Present Illness Reason for Consultation: small bowel obstruction Requesting Physician: Juan C Holland DO Attending Physician: Juan C Holland DO History of Present Illness 78-year-old woman with a prior history of multiple abdominal operations presents with a 2-day history of increasing abdominal pain, nausea, bloating. The pain became severe yesterday and she was brought to the emergency department. Denies fevers or chills. No vomiting. CT scan demonstrated a small bowel obstruction. Today she states that she is feeling better. She passed some flatus this morning. She denies any nausea or vomiting, fevers or chills today. Allergies Allergy/AdvReac Type Severity Reaction Status Date / Time cephalexin Allergy Rash Unverified 01/21/24 22:43 Home Medications Medication Instructions Recorded Confirmed Type aspirin 81 mg tablet,delayed 162 mg PO QPM 01/21/24 01/21/24 History release bimatoprost 0.01 % eye drops 1 drp ophthalmic (eye) QPM 01/21/24 01/21/24 History (Madi) cholecalciferol (vitamin D3) 125 125 mcg PO QAM 01/21/24 01/21/24 History mcg (5,000 unit) tablet (Vitamin D3) ezetimibe 10 mg tablet 10 mg PO QAM 01/21/24 01/21/24 History famotidine 20 mg tablet 20 mg PO QPM 01/21/24 01/21/24 History furosemide 40 mg tablet 40 mg PO QAM 01/21/24 01/21/24 History lactobacillus comb no.10 20 20,000 mmu cells PO DAILY 01/21/24 01/21/24 History billion cell capsule (Probiotic) levothyroxine 50 mcg tablet 50 mcg PO QAM 01/21/24 01/21/24 History multivitamin 1 tab PO QAM 01/21/24 01/21/24 History pantoprazole 40 mg tablet,delayed 40 mg PO BID 01/21/24 01/21/24 History release spironolactone 25 mg tablet 25 mg PO QAM 01/21/24 01/21/24 History valsartan 160 mg tablet 160 mg PO QAM 01/21/24 01/21/24 History Patient History Social History Smoking Status: Former smoker Hx Alcohol Use: Yes Alcohol type: wine Hx Substance Use: No Preferred Language: Ukrainian Communication Ability: Effective Medical Records Director Required: No Beliefs That Will Affect Care: None Current Living Situation: Alone Other Information That Helps Us Care for You: No Feels Safe at Home: Yes Safety Concerns: Feels Safe At This Time Assistive Devices: Cane, Glasses and Walker Review of Systems Review of Systems: All systems reviewed & are unremarkable except as noted in HPI & below Physical Exam Constitutional: WD/WN, vitals as above Eyes: PERRL, conjunctivae normal, anicteric sclerae Neck: trachea midline, no thyromegaly Respiratory: normal respiratory effort; no respiratory distress and no labored breathing Cardiovascular: Rate/Rhythm: regular rate and regular rhythm Gastrointestinal (Abdomen): Inspection/Auscultation: abdomen normal to inspection and + abdomen distended ( Minimal) Percussion/Palpation: + abdomen tender ( mild tenderness to palpation diffusely) and abdomen soft; no guarding and abdomen not rigid Skin: no rashes, warm and dry Psychiatric: A+Ox3, euthymic affect Results & Data Vital Signs (Past 12 Hours) Vital Signs Temp Pulse Pulse Resp BP BP Pulse Ox 01/22/24 07:49 36.7 C 67 16 95/55 L 92 01/22/24 04:00 01/22/24 04:00 36.7 C 78 14 117/67 93 01/22/24 03:00 64 17 104/62 96 01/22/24 02:00 65 17 101/58 L 96 01/22/24 01:09 72 15 103/62 92 O2 Del Method 01/22/24 07:49 Room Air 01/22/24 04:00 Room Air 01/22/24 04:00 Room Air 01/22/24 03:00 Room Air 01/22/24 02:00 Room Air 01/22/24 01:09 Room Air Laboratory Results 01/22/24 01/21/24 01/21/24 Range/Units 07:03 22:48 21:37 WBC 5.13 (4.8-10.8) K/ul RBC 3.23 L (4.20-5.40) M/uL Hgb 8.5 L (12.0-16.0) g/dl POC Hgb 12.9 (12.0-16.0) g/dl Hct 27.5 L (37.0-47.0) % POC Hct 38 (37-47) % MCV 85.1 (80.0-100.0) fL MCH 26.3 (25.0-34.0) pg MCHC 30.9 L (32.0-36.0) g/dL RDW Std Deviation 50.7 H (36.4-46.3) fL RDW Coeff of Kush 16.5 H (11.5-14.5) % Plt Count 210 (130-400) K/uL MPV 10.1 (9.4-12.4) fL Immature Gran % (Auto) 0.2 % Neut % (Auto) 63.5 % Lymph % (Auto) 13.3 % Lake % (Auto) 15.8 % Eos % (Auto) 6.8 % Baso % (Auto) 0.4 % Neut # (Auto) 3.26 (1.40-6.50) K/uL Lymph # (Auto) 0.68 L (1.20-3.40) K/uL Lake # (Auto) 0.81 H (0.11-0.59) K/uL Eos # (Auto) 0.35 (0.00-0.50) K/uL Baso # (Auto) 0.02 (0.00-0.20) K/uL Immature Gran # (Auto) 0.01 (0.01-0.20) K/uL POC Sodium 140 (135-144) mmol/L Sodium 141 (136-145) mmol/L POC Potassium 4.0 (3.3-5.0) mmol/L Potassium 4.0 (3.5-5.1) mmol/L POC Chloride 103 (101-112) mmol/L Chloride 108 H (98-107) mmol/L Carbon Dioxide 29 (21-32) mmol/L POC Total CO2 28 (24-31) mmol/L Anion Gap 4 (3-11) POC Anion Gap 14.0 L (16-25) mmol/L POC BUN 50 H (7-18) mg/dl BUN 39 H (6-23) mg/dl Creatinine 0.98 (0.6-1.2) mg/dl POC Creatinine 1.3 (0.6-1.3) mg/dl Est Cr Clr Drug Dosing 43.8 ml/min eGFR 58.35 BUN/Creatinine Ratio 39.8 H (10-20) Glucose 118 H (70-99(Fasting)) mg/dl POC Glucose (other) 105 H (70-99) mg/dl Calcium 8.3 L (8.6-10.3) mg/dl POC Ioniz Calcium Jo Ann 1.18 (1.12-1.32) mmol/l Magnesium 2.1 (1.7-2.4) mg/dl Total Bilirubin (0.2-1.0) mg/dl Direct Bilirubin 0.1 AST (13-39) U/L ALT (7-52) U/L Alkaline Phosphatase (34-104) U/L Total Protein (6.0-8.3) gm/dl Albumin (3.4-5.0) gm/dl Lipase (11-82) U/L Urine Color Urine Appearance (Clear) Urine pH (4.5-7.5) Ur Specific Dixon (1.000-1.030) Urine Protein (Negative) Urine Glucose (UA) (Negative) Urine Ketones (Negative) Urine Blood (Negative) Urine Nitrite (Negative) Urine Bilirubin (Negative) Urine Urobilinogen (Negative) Ur Leukocyte Esterase (Negative) Urine WBC (Auto) (0-5) /hpf Urine RBC (Auto) (0-2) /hpf U Hyaline Cast (Auto) (0-2) /lpf U Epithel Cells (Auto) (0-2) /hpf Urine Bacteria (Auto) (None Seen) 01/21/24 Range/Units 21:30 WBC 10.59 (4.8-10.8) K/ul RBC 4.23 (4.20-5.40) M/uL Hgb 11.3 L (12.0-16.0) g/dl POC Hgb (12.0-16.0) g/dl Hct 35.3 L (37.0-47.0) % POC Hct (37-47) % MCV 83.5 (80.0-100.0) fL MCH 26.7 (25.0-34.0) pg MCHC 32.0 (32.0-36.0) g/dL RDW Std Deviation 50.2 H (36.4-46.3) fL RDW Coeff of Kush 16.5 H (11.5-14.5) % Plt Count 292 (130-400) K/uL MPV 10.3 (9.4-12.4) fL Immature Gran % (Auto) 0.2 % Neut % (Auto) 82.1 % Lymph % (Auto) 7.6 % Lake % (Auto) 7.1 % Eos % (Auto) 2.8 % Baso % (Auto) 0.2 % Neut # (Auto) 8.70 H (1.40-6.50) K/uL Lymph # (Auto) 0.80 L (1.20-3.40) K/uL Lake # (Auto) 0.75 H (0.11-0.59) K/uL Eos # (Auto) 0.30 (0.00-0.50) K/uL Baso # (Auto) 0.02 (0.00-0.20) K/uL Immature Gran # (Auto) 0.02 (0.01-0.20) K/uL POC Sodium (135-144) mmol/L Sodium 140 (136-145) mmol/L POC Potassium (3.3-5.0) mmol/L Potassium 4.1 (3.5-5.1) mmol/L POC Chloride (101-112) mmol/L Chloride 102 (98-107) mmol/L Carbon Dioxide 29 (21-32) mmol/L POC Total CO2 (24-31) mmol/L Anion Gap 9 (3-11) POC Anion Gap (16-25) mmol/L POC BUN (7-18) mg/dl BUN 42 H (6-23) mg/dl Creatinine 1.24 H (0.6-1.2) mg/dl POC Creatinine (0.6-1.3) mg/dl Est Cr Clr Drug Dosing 34.8 ml/min eGFR 43.99 BUN/Creatinine Ratio 33.9 H (10-20) Glucose 107 H (70-99(Fasting)) mg/dl POC Glucose (other) (70-99) mg/dl Calcium 10.1 (8.6-10.3) mg/dl POC Ioniz Calcium Jo Ann (1.12-1.32) mmol/l Magnesium (1.7-2.4) mg/dl Total Bilirubin 0.4 (0.2-1.0) mg/dl Direct Bilirubin TNP AST 31 (13-39) U/L ALT 16 (7-52) U/L Alkaline Phosphatase 58 (34-104) U/L Total Protein 8.3 (6.0-8.3) gm/dl Albumin 4.9 (3.4-5.0) gm/dl Lipase 21 (11-82) U/L Urine Color Yellow Urine Appearance Clear (Clear) Urine pH 5.5 (4.5-7.5) Ur Specific Dixon 1.016 (1.000-1.030) Urine Protein Negative (Negative) Urine Glucose (UA) Negative (Negative) Urine Ketones Trace H (Negative) Urine Blood Negative (Negative) Urine Nitrite Negative (Negative) Urine Bilirubin Negative (Negative) Urine Urobilinogen Negative (Negative) Ur Leukocyte Esterase 1+ H (Negative) Urine WBC (Auto) 0-5 (0-5) /hpf Urine RBC (Auto) 0-2 (0-2) /hpf U Hyaline Cast (Auto) 0-2 (0-2) /lpf U Epithel Cells (Auto) 0-2 (0-2) /hpf Urine Bacteria (Auto) None Seen (None Seen) Diagnostic Findings Exam(s): CT ABDOMEN + PELVIS With Contrast IV Amt: 93 ml optiray 320 EXAM: CT Abdomen and Pelvis With Intravenous Contrast CLINICAL HISTORY: RUQ abd pain. TECHNIQUE: Axial computed tomography images of the abdomen and pelvis with intravenous contrast. CTDI is 26.18 mGy and DLP is 1101.57 mGy-cm. Automated exposure control was utilized for the study. A dose lowering technique was utilized adhering to the principles of ALARA. CONTRAST: Patient received 93 ml optiray 320 of IV contrast COMPARISON: No relevant prior studies available. FINDINGS: Limitations: There is respiratory artifact, which degrades image quality on multiple image slices. Lung bases: Unremarkable. No mass. No consolidation. ABDOMEN: Liver: Unremarkable. No mass. Gallbladder and bile ducts: Unremarkable. No calcified stones. No ductal dilation. Pancreas: Unremarkable. No mass. No ductal dilation. Spleen: Unremarkable. No splenomegaly. Adrenals: Unremarkable. No mass. Kidneys and ureters: Kidneys demonstrate normal enhancement. Cortical cysts are noted involving the superior pole the left kidney measuring 14 mm. Evaluation is somewhat limited by artifact from extensive hardware and respiratory degradation. No hydronephrosis or obstructive nephrolithiasis. Extensive postoperative changes noted from T11-S1 levels with bilateral pedicle screws and paraspinal rods. The left S1 posterior pedicle screw does not articulate with the inferior margin of the paraspinal rods. Stomach and bowel: There are abnormal fluid and gas dilated small bowel loops throughout the central abdomen and pelvis, measuring up to 3. 6 cm in diameter. There appears to be questionable subtle transition point proximal to the postoperative suture line in the central pelvis. At least moderate fluid and gas distention of the stomach. PELVIS: Appendix: No findings to suggest acute appendicitis. Bladder: Unremarkable. No mass. Reproductive: Status post hysterectomy. ABDOMEN and PELVIS: Intraperitoneal space: Unremarkable. No free air. No significant fluid collection. Bones/joints: Multilevel degenerative changes with interbody cages at several levels of the lumbar spine. No acute osseous abnormality. Laminectomy defects from L3-L5 levels. Grade 1-2 anterolisthesis of L4 on L5. No dislocation. Soft tissues: Unremarkable. Vasculature: Unremarkable. No abdominal aortic aneurysm. Lymph nodes: Unremarkable. No enlarged lymph nodes. IMPRESSION: There are abnormal fluid and gas dilated small bowel loops throughout the central abdomen and pelvis, measuring up to 3.6 cm in diameter. There appears to be questionable subtle transition point proximal to the postoperative suture line in the central pelvis. While this may represent enteritis, findings are highly suspicious for a mid small bowel obstruction. No pneumatosis or pneumoperitoneum.
--- NOTE | 2024-01-22 12:16 | Hospitalist Progress Note ---
Date of Service January 22, 2024 Assessment & Plan (1) Small bowel obstruction: Plan: Recurrent, due to adhesions (2) Anemia: Plan Patient with recurrent small bowel obstruction due to adhesions Reviewed surgical consultation, continue medical management Continue to monitor hemoglobin, suspect somewhat dilutional anemia. Monitor bowel function return, encourage ambulation Continue IV fluids Parameters for antihypertensive medications Hold diuretics Admission and Anticipated Discharge Date Admission Date: January 22, 2024 Subjective Patient states that her abdominal discomfort improving. Reports her last bowel movement was yesterday morning Physical Exam Physical Exam: Constitutional: Alert, nontoxic in appearance HEENT: Mucous membranes moist. Lungs: Clear to auscultation, decreased, no wheezes rales or rhonchi CV: S1-S2, regular Abdomen: Soft, nondistended, mild left lower quadrant/suprapubic tenderness, no rigidity or rebound Extremities: No significant edema Neuro: No focal deficits Psych: Cooperative, normal mood Results & Data Results & Data Vital Signs (Past 12 Hours) Vital Signs Temp Pulse Pulse Resp BP BP Pulse Ox 01/22/24 07:49 36.7 C 67 16 95/55 L 92 01/22/24 04:00 01/22/24 04:00 36.7 C 78 14 117/67 93 01/22/24 03:00 64 17 104/62 96 01/22/24 02:00 65 17 101/58 L 96 01/22/24 01:09 72 15 103/62 92 O2 Del Method 01/22/24 07:49 Room Air 01/22/24 04:00 Room Air 01/22/24 04:00 Room Air 01/22/24 03:00 Room Air 01/22/24 02:00 Room Air 01/22/24 01:09 Room Air Diagnostic Findings Reviewed imaging, laboratory and diagnostic studies. Pertinent findings as below. Hemoglobin 8.5 Electrolytes within normal range Creatinine 0.98 Personally reviewed KUB, dilated loops of bowel. Radiology report indicating persistent small bowel obstruction
[2024-01-22] MEDS: ACETAMINOPHEN 325 MG TAB PO PRN (12:35)
[2024-01-22] MEDS: LACTATED RINGER'S 1,000 ML IV SCH (16:32)
[2024-01-22] MEDS: ASPIRIN 81 MG ECTAB PO SCH (21:33)
[2024-01-22] MEDS: BIMATOPROST 0.01% OP SOLN 2.5 ML BTL OP SCH (21:33)
[2024-01-22] MEDS: FAMOTIDINE 20 MG TAB PO SCH (21:33)
[2024-01-23 06:39] LABS: Hemoglobin 8.1 g/dl (12.0-16.0); Mean Corpuscular Hemoglobin 26.6 pg (25.0-34.0); Mean Corpuscular Hgb Conc 31.2 g/dL (32.0-36.0); Mean Corpuscular Volume 85.2 fL (80.0-100.0); Mean Platelet Volume 9.9 fL (9.4-12.4); Platelet Count 201 K/uL (130-400); RDW Coefficient of Variation 16.5 % (11.5-14.5); RDW Standard Deviation 51.8 fL (36.4-46.3); Red Blood Count 3.05 M/uL (4.20-5.40); White Blood Count 3.81 K/ul (4.8-10.8)
[2024-01-23 06:53] LABS: BUN Creatinine Ratio 25.8 (10-20); Calcium 8.1 mg/dl (8.6-10.3); Creatinine Clr Calc Pharmacy 48.2 ml/min; Potassium 3.6 mmol/L (3.5-5.1)
[2024-01-23 07:49] VITALS: BP 117/70; RESP 16; TEMP 98.2; O2SAT 95
[2024-01-23] MEDS: bisacodyL 10 MG SUPP PR STA (11:16)
--- NOTE | 2024-01-23 11:21 | Surgery Progress Note ---
Date of Service January 23, 2024 Assessment & Plan (1) Small bowel obstruction: Plan: 78-year-old woman with small bowel obstruction. She has had multiple operations in the past. There are no peritoneal signs. White blood cell count is normal. She is afebrile. She is beginning to pass flatus. I would recommend continued conservative measures for now. If she continues to pass flatus into this afternoon, we may advance her diet to clear liquids today. Encourage ambulation. We will continue to follow while she is here. 01/23/2024 - Passing flatus. Advance to clears. Continue close monitoring Admission and Anticipated Discharge Date Admission Date: January 22, 2024 Subjective feeling better this morning. Passing flatus. No nausea or vomiting. Physical Exam Gastrointestinal (Abdomen): Inspection/Auscultation: abdomen normal to inspection and + abdomen distended ( Minimal) Percussion/Palpation: + abdomen tender ( mild tenderness to palpation diffusely) and abdomen soft; no guarding and abdomen not rigid Results & Data Vital Signs (Past 12 Hours) Vital Signs Temp Pulse Resp BP Pulse Ox O2 Del Method 01/23/24 07:49 36.8 C 57 L 16 117/70 95 Room Air Laboratory Results 01/23/24 Range/Units 05:50 WBC 3.81 L (4.8-10.8) K/ul RBC 3.05 L (4.20-5.40) M/uL Hgb 8.1 L (12.0-16.0) g/dl Hct 26.0 L (37.0-47.0) % MCV 85.2 (80.0-100.0) fL MCH 26.6 (25.0-34.0) pg MCHC 31.2 L (32.0-36.0) g/dL RDW Std Deviation 51.8 H (36.4-46.3) fL RDW Coeff of Kush 16.5 H (11.5-14.5) % Plt Count 201 (130-400) K/uL MPV 9.9 (9.4-12.4) fL Sodium 140 (136-145) mmol/L Potassium 3.6 (3.5-5.1) mmol/L Chloride 108 H (98-107) mmol/L Carbon Dioxide 29 (21-32) mmol/L Anion Gap 3 (3-11) BUN 23 (6-23) mg/dl Creatinine 0.89 (0.6-1.2) mg/dl Est Cr Clr Drug Dosing 48.2 ml/min eGFR 65.50 BUN/Creatinine Ratio 25.8 H (10-20) Glucose 86 (70-99(Fasting)) mg/dl Calcium 8.1 L (8.6-10.3) mg/dl Magnesium 2.0 (1.7-2.4) mg/dl
--- NOTE | 2024-01-23 11:57 | Discharge Summary ---
Discharge Summary Date of Service January 23, 2024 Principal Dx & Hospital Course #1 = Principal Diagnosis (1) Small bowel obstruction: Recurrent, due to adhesions (2) Anemia: Plan Patient presented to the emergency room with abdominal pain. She has had a previous bowel obstructions. Imaging in the ED was consistent with recurrent bowel obstruction most likely due to adhesions. Patient was admitted to the hospital. She was made NPO. She was placed on IV fluid resuscitation. Electrolytes and renal function were monitored. Surgical consultation was obtained. By the following day she had significant improvement in her abdominal symptoms. And by the afternoon she was started to pass flatus. Her diet was advanced. It was also noted that the patient had a some significant anemia. Unclear what her baseline is. It seemed to be asymptomatic. There is no evidence of acute blood loss. May be somewhat dilutional due to the fluid she received for resuscitation with her small bowel obstruction. On the morning of discharge she continued to pass flatus and had a bowel movement. Diet was again advanced. Her hemoglobin remained stable and unchanged from the previous day. She will be discharged home to outpatient care with her usual providers provided she tolerates lunch without difficulty. 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 Patient says since morning she is having abdominal pain initially in the lower abdomen. Wednesday she noticed the pain is coming into the upper abdomen and she was also very nauseous and vomited when she decided come to the ER. After vomiting her abdominal pain is slightly better. She moved her bowels Wednesday.. Patient is afebrile. Currently no headache. 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 No runny nose or sore throat or cough. No chest pain or shortness of breath. Resting comfortably. Hemodynamically stable. 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 Patient says she also might have sleep apnea because she gets headache when she wakes up and also during the hospitalization her oxygen sats were going down while sleeping and she is scheduled for sleep apnea test on February 23. Past medical history. As mentioned above Past surgical history. Total hysterectomy. Appendectomy. Back surgeries. Right wrist surgery. Right total knee replacement. Right foot surgery. Bilateral cataracts. Stent in the eyes for glaucoma. Dental implant. Social history. Smoked from age [age] and then quit. Alcohol rarely. Family history. 1 brother from prostate cancer. Another brother had prostate cancer and dementia. Family history significant for hypertension. Mother had A-fib and sick sinus syndrome. Admission Exam Per Admitting Provider See H&P Discharge Exam Constitutional: Alert, nontoxic HEENT: Mucous membranes moist. Lungs: Clear to auscultation, decreased, no wheezes rales or rhonchi CV: S1-S2, regular Abdomen: Soft, nontender, nondistended, normal active bowel sounds Extremities: No significant edema Neuro: No focal deficits Psych: Cooperative, normal mood Updated Medication List Medication Instructions Recorded Confirmed Type aspirin 81 mg tablet,delayed 162 mg PO QPM 01/21/24 01/21/24 History release bimatoprost 0.01 % eye drops 1 drp ophthalmic (eye) QPM 01/21/24 01/21/24 History (Lumigan) cholecalciferol (vitamin D3) 125 125 mcg PO QAM 01/21/24 01/21/24 History mcg (5,000 unit) tablet (Vitamin D3) ezetimibe 10 mg tablet 10 mg PO QAM 01/21/24 01/21/24 History famotidine 20 mg tablet 20 mg PO QPM 01/21/24 01/21/24 History furosemide 40 mg tablet 40 mg PO QAM 01/21/24 01/21/24 History lactobacillus comb no.10 20 20,000 mmu cells PO DAILY 01/21/24 01/21/24 History billion cell capsule (Probiotic) levothyroxine 50 mcg tablet 50 mcg PO QAM 01/21/24 01/21/24 History multivitamin 1 tab PO QAM 01/21/24 01/21/24 History pantoprazole 40 mg tablet,delayed 40 mg PO BID 01/21/24 01/21/24 History release spironolactone 25 mg tablet 25 mg PO QAM 01/21/24 01/21/24 History valsartan 160 mg tablet 160 mg PO QAM 01/21/24 01/21/24 History polyethylene glycol 3350 17 17 g PO DAILY #510 grams 01/23/24 Rx gram/dose oral powder (Miralax) Hospital Stay Data Consultations 01/21/24 23:33 ED Decision to Admit Stat 01/22/24 04:39 Consult General Surgery Routine Diagnostic Imagining Performed 01/21/24 21:14 CT abd pelvis IV con only Stat Reviewed imaging, laboratory and diagnostic studies. Pertinent findings as below. WBCs 3.8 Hemoglobin 8.1 MCV 85.2 Platelets 201 Electrolytes within normal range Creatinine 0.89 Pending Results Patient Have Any Pending Studies at Discharge: No Discharge Instructions Given to Patient (Per Discharging Provider) Encourage you to routine bowel regimen Discussed with your PCP outpatient evaluation for your anemia Total Time Total Time Spent Total Time Spent (In Minutes): 32
[2024-01-23 12:02] VITALS: PULSE 74
--- NOTE | 2024-01-24 09:47 | Coding Query ---
CODING QUERY To promote full compliance with coding requirements relating to patient care, provider participation is requested in all cases of hematologist uncertainty. Please assist us with the question(s) below: Per the H&P "JAMIE Creatinine 1.2 We do not have baseline labs If worsening will hold her diuretics and valsartan Follow labs" Please clarify the meaning of JAMIE. ( ) Acute Kidney Injury ( x ) Acute Kidney Insufficiency ( ) Other (Specify): Principal Diagnosis: "that condition established after study, to be chiefly responsible for occasioning the admission of the patient to the hospital for care." Co-Existing Principal Diagnosis: "when two or more diagnoses equally meet the criteria for principal diagnosis as determined by the circumstances of admission, diagnostic work up, and/or therapy provided, and the Alphabetic Index, Tabular List, or another coding guideline does not provide sequencing direction, any one of the diagnoses may be sequenced first." "When the physician has documented what appears to be a current diagnosis in the body of the record, but has not included the diagnosis in the final diagnostic statement, the physician should be asked whether the diagnosis should be added." (Source Coding [facility] 2 QTR90. p3-4) [id number]
== END 2024-01-23 15:00 | disposition home or self-care (01) | DRG 390 ==
LOC: ED 21:09 → 3N 01-22 02:28